=== PATIENT | female | born 2000 | race Caucasian/White ===

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

== ENCOUNTER 2022-07-04 08:59 | Emergency (ER) | payer OTHER ==
[~2022-07-04] VITALS: Ht 162.6 cm; Wt 47.6 kg
--- NOTE | 2022-07-04 09:08 | NUR ---
Patient ambulated to bed 8.
[2022-07-04 09:10] VITALS: BP 125/79
[2022-07-04] MEDS ORDERED: DICYCLOMINE HCL LIQUID 20 MG, ALUMINUM HYD/MAG/SIMETHICONE 30 ML, LIDOCAINE VISCOUS 2% ... PO ONE ×3 (09:55)
[2022-07-04] MEDS ORDERED: DICYCLOMINE HCL LIQUID 10 MG/5 ML UDC ONE (10:02)
[2022-07-04] MEDS ORDERED: ALUMINUM HYD/MAG/SIMETHICONE 30 ML UDC ONE (10:02)
--- NOTE | 2022-07-04 11:00 | NUR ---
21/F PRESENTS TO ED WITH C/O ABDOMINAL PAIN, N/V/D X3 DAYS. PATIENT REPORTS TAKING GAS RELIEF MEDS WITH NO RELIEF. DENIES URINARY SYMPTOMS, DENIES SOB, HEADACHE.
--- NOTE | 2022-07-04 11:07 | NUR ---
Dr. Bustos evaluating patient at bedside.
[2022-07-04] MEDS ORDERED: ONDA8TAB87 PO (11:32)
[2022-07-04] MEDS ORDERED: OMEP40EC24 PO (11:32)
[2022-07-04] MEDS ORDERED: CIPR500T4 PO (11:32)
[2022-07-04] MEDS ORDERED: IBUP-2213 PO (11:32)
[2022-07-04 11:52] VITALS: BP 123/72
--- NOTE | 2022-07-04 11:52 | NUR ---
Patient discharged with v/s stable. Written and verbal after care instructions given. Patient alert, oriented and verbalized understanding of instructions. Ambulatory with steady gait. All questions addressed prior to discharge. ID band removed. Patient advised to follow up with PMD. Rx of Ibuprofen, Cipro, Omeprazole and Zofran given. Opportunity to ask questions provided and answered.
--- NOTE | 2022-07-04 12:09 | NUR ---
The patient's care was reviewed and supervised by ED Agency Nurse 9, RN, RN.
== END 2022-07-04 11:52 | disposition home or self-care (01) ==
LOC: MED 08:59
DX: R10.13 Epigastric pain (principal)
CPT/HCPCS: 81002; 81025; 99283